=== PATIENT | male | born 1955 | race Caucasian/White ===

== ENCOUNTER 2023-08-15 15:57 | Emergency (ER) | payer MEDICARE ==
[~2023-08-15] VITALS: Ht 162.6 cm; Wt 55.0 kg
[2023-08-15 16:01] VITALS: O2SAT 98
[2023-08-15 17:06] LABS: BASOPHILS % 0.3 % (0.0-2.0); EOSINOPHILS % 0.3 % (0.0-5.0); HEMATOCRIT. 42.7 % (42.0-52.0); HEMOGLOBIN. 14.3 g/dL (14.0-18.0); LYMPHOCYTES % 10.6 % (20.0-50.0); MEAN CORPUSCULAR HEMOGLOBIN 32.3 pg (28.0-32.0); MEAN CORPUSCULAR HGB CONC 33.6 g/dL (31.0-37.0); MEAN CORPUSCULAR VOLUME 96.3 fL (80.0-94.0); MEAN PLATELET VOLUME 8.9 fl (7.4-10.4); MONOCYTES % 4.7 % (2.0-8.0); NEUTROPHILS % 84.1 % (40.0-76.0); PLATELET 249 x1000/uL (130-400); RED BLOOD CELL COUNT 4.43 mill/uL (4.7-6.1); RED CELL DISTRIBUTION WIDTH 13.9 % (11.6-14.6); WHITE BLOOD COUNT 8.9 x1000/uL (4.5-11.0)
[2023-08-15 17:13] LABS: PROTHROMBIN TIME 11.1 sec (9.6-11.0)
[2023-08-15 17:23] LABS: ALANINE AMINOTRANSFERASE 16 IU/L (10-49); ALBUMIN 4.4 g/dL (3.2-4.8); ASPARTATE AMINOTRANSFERASE 15 IU/L (<34); BILIRUBIN TOTAL 0.6 mg/dL (0.1-1.0); CARBON DIOXIDE 27 mEq/L (21-32); CHLORIDE 103 mEq/L (98-107); CREATININE 0.7 mg/dL (0.6-1.3); GLUCOSE 94 mg/dL (70-105); POTASSIUM 3.9 mEq/L (3.5-5.1); SODIUM 135 mEq/L (136-145); TROPONIN I HIGH SENSITIVITY 6 ng/L (3.0-53); UREA NITROGEN BLOOD 16 mg/dL (9-23)
[2023-08-15 17:48] LABS: ETHANOL BLOOD < 10 mg/dL (<10)
[2023-08-15] MEDS: HYDRALAZINE 20MG/ML VIAL IV ONE (19:19)
[2023-08-15] MEDS: ONDANSETRON HCL 4MG/2ML INJ IV STA (19:19)
[2023-08-15] MEDS: MORPHINE SULFATE 4 MG/ML CPJ (NOT FOR IM USE) IV STA (19:21)
[2023-08-15 19:37] LABS: CLARITY URINE CLEAR (CLEAR); COLOR URINE YELLOW (YELLOW); GLUCOSE URINE NEGATIVE (NEGATIVE); KETONES URINE 1+ (NEGATIVE); LEUKOCYTE ESTERASE URINE NEGATIVE (NEGATIVE); NITRITE URINE NEGATIVE (NEGATIVE); OCCULT BLOOD URINE TRACE (NEGATIVE); PH URINE >=9.0 (4.5-8.0); PROTEIN URINE TRACE (NEGATIVE); SPECIFIC GRAVITY URINE 1.056 (1.005-1.030); UROBILINOGEN URINE 0.2 E.U./dL (0.2-1.0)
[2023-08-15 19:52] LABS: BACTERIA URINE NONE SEEN; RBC URINE 0-2 /hpf (0-2); SQUAMOUS EPITHELIAL CELL URINE RARE /lpf (RARE/1+); WBC URINE NONE SEEN /hpf (0-2)
[2023-08-15 19:54] LABS: *AMPHETAMINES SCREEN URINE NEGATIVE (NEGATIVE); *BARBITURATES SCREEN URINE NEGATIVE (NEGATIVE); *BENZODIAZEPINES SCREEN URINE NEGATIVE (NEGATIVE); *COCAINE SCREEN URINE NEGATIVE (NEGATIVE); CANNABINOID URINE SCREEN NEGATIVE (NEGATIVE); ECSTASY MDMA SCREEN URINE NEGATIVE (NEGATIVE); METHADONE URINE SCREEN Neg (NEGATIVE); OPIATES URINE SCREEN NEGATIVE (NEGATIVE); PHENCYCLIDINE URINE SCREEN NEGATIVE (NEGATIVE)
[2023-08-15 21:15] LABS: TROPONIN I HIGH SENSITIVITY 5 ng/L (3.0-53)
[2023-08-15 22:39] VITALS: BP 179/68; PULSE 69; RESP 10; TEMP 97.6
== END 2023-08-15 23:00 | disposition short-term general hospital (02) ==
LOC: ER 15:57
DX: R11.2 Nausea with vomiting, unspecified (principal); R13.10 Dysphagia, unspecified; E78.00 Pure hypercholesterolemia, unspecified
CPT/HCPCS: 80053; 80305; 81003; 80320; 82962; 85025; 85610; 84484; 36415; 71045; 70496; 70498; 70450; 93005; 96374; 96375; 99291; J0360; J2405; J2270; G0480